=== PATIENT | male | born 1970 | race African-American/Black ===

== ENCOUNTER 2017-08-14 23:31 | Emergency (ER) | payer SELFPAY ==
[~2017-08-14] VITALS: Ht 175.3 cm; Wt 120.2 kg
[2017-08-14 23:44] VITALS: BP 156/88
[2017-08-14] MEDS ORDERED: NKM (23:44)
[2017-08-15] MEDS ORDERED: Tetracaine 0.5% Opth 4ml Soln LEFT EYE ONE
[2017-08-15] MEDS ORDERED: Fluorescein Strips LEFT EYE ONE
--- NOTE | 2017-08-15 00:02 | Emergency Room Report ---
History of Present Illness General Chief Complaint: Eye Problems Source: Patient Present Illness HPI 47-year-old male presenting with left eye pain. Patient states he was wearing contacts today, took them off, may have scratched his left eye, went to urgent care was diagnosed with corneal abrasion, was discharged with [place] and Cipro ophthalmic drops, patient states that he still has persistence of pain. Patient states that he has foreign body sensation in left eye, increased tearing /lacrimation, denies any headache and nausea vomiting Patient states that he has been using contacts for a long time, only had contacts on for about one day Allergies: Coded Allergies: No Known Allergies (Unverified , 08/14/17) Patient History Past Medical History: see triage record Past Surgical History: none Pertinent Family History: none Reviewed Nursing Documentation: PMH: Agreed, PSxH: Agreed Nursing Documentation-PMH Past Medical History: No Stated History Review of Systems All Other Systems: negative except mentioned in HPI Physical Exam Vital Signs Date Time Temp Pulse Resp B/P (MAP) Pulse Ox O2 Delivery O2 Flow Rate FiO2 08/14/17 23:34 97.5 67 18 156/88 97 Room Air Sp02 EP Interpretation: reviewed, normal General Appearance: normal inspection, well appearing, no apparent distress, alert, GCS 15, non-toxic Head: normocephalic, atraumatic Eyes: left eye Scleral Injection, left eye other - large circular corneal abrasion seen on fluorescin stain. no FB, bilateral eye PERRL, bilateral eye EOMI ENT: normal ENT inspection, normal pharynx, normal voice, moist mucus membranes Neck: normal inspection, full range of motion, supple Respiratory: normal inspection, lungs clear, normal breath sounds, no respiratory distress, no retraction, no wheezing, speaking full sentences, chest symmetrical Cardiovascular #1: normal inspection, regular rate, rhythm, no edema, normal capillary refill Cardiovascular #2: 2+ radial (R), 2+ radial (L) Gastrointestinal: normal inspection, non tender, soft, non-distended, no guarding Genitourinary: no CVA tenderness Musculoskeletal: normal inspection, back normal, normal range of motion, non- tender Neurologic: normal inspection, alert, oriented x3, responsive, motor strength/ tone normal, sensory intact, normal gait, speech normal Psychiatric: normal inspection, judgement/insight normal, memory normal Skin: normal inspection, normal color, no rash, warm/dry, well hydrated, normal turgor Medical Decision Making Diagnostic Impression: Primary Impression: Corneal abrasion, left ER Course 47-year-old male with left eye pain DDX: Corneal abrasion/corneal ulcer Plan: [place] lamp examination ER course: Patient has remained stable during ED stay. Corneal abrasion seen on with lamp examination Disposition: Patient is to be discharged to home. Patient is instructed to continue prescriptions that were already given to him by urgent care, ciprofloxacin ophthalmic drops, as well as [place] Patient instructed to followup with an record pressman in 3 days Please note that this Emergency Department Report was dictated using [employer] keeper technology software, occasionally this can lead to erroneous entry secondary to interpretation by the dictation equipment Last Vital Signs Date Time Temp Pulse Resp B/P (MAP) Pulse Ox O2 Delivery O2 Flow Rate FiO2 08/14/17 23:44 97.5 67 18 156/88 97 Room Air Disposition: HOME, SELF-CARE Condition: Stable Monik Woo M.D. Aug 15, 2017 00:01
[2017-08-15 00:30] VITALS: BP 156/88
== END 2017-08-15 00:30 | disposition home or self-care (01) ==
LOC: EMR 23:55
DX: S05.02XA Injury of conjunctiva and corneal abrasion without foreign body, left eye, initial encounter (principal); X58.XXXA Exposure to other specified factors, initial encounter; Y92.89 Other specified places as the place of occurrence of the external cause
CPT/HCPCS: 99283